=== PATIENT | male | born 1965 | race Caucasian/White ===

== ENCOUNTER 2022-09-29 08:39 | Observation (INO) ==
[2022-09-29] MEDS ORDERED: MoRPHine SULFATE 4 MG/ML 1 ML CARP\\VIAL IV PRN ×2 (08:59→15:45)
[2022-09-29] MEDS ORDERED: SODIUM CHLORIDE 0.9% 1000ML 1,000 ML IV STA (08:59)
[2022-09-29] MEDS ORDERED: ONDANSETRON INJ 2 MG/ML 2 ML VIAL IV STA (08:59)
[2022-09-29] MEDS ORDERED: MoRPHine SULFATE 4 MG/ML 1 ML CARP\\VIAL IV STA (08:59)
--- NOTE | 2022-09-29 09:05 | Emergency Department Note ---
Impression & Plan Epigastric abdominal pain, Acute cholecystitis ED Provider Note NAME: DALTON FERNANDEZ AGE: 57 SEX: M : 1965 ARRIVES VIA: Walk-In INFORMANT: [Patient] ED PROVIDER(S): [Aron Vega MD] CHIEF COMPLAINT: Rib pain, abdominal pain HISTORY OF PRESENT ILLNESS: The patient is a 57-year-old male who states that 13 hours ago he began noticing an upset stomach. Things progressed all evening through the night and into this morning to severe pain in the upper abdomen worse on the right. No shortness of breath, no pleuritic pain. No fever, chills, nausea or vomiting. No diarrhea. Patient states the pain is constant. The patient has a history of appendectomy, he has never experienced pain like this before. He had felt fine all day yesterday before the pain began. There was no trauma or injury to the chest wall or abdomen. PMHx/PSHx: See Below SOCIAL HISTORY: See Below. PHYSICAL EXAM: GENERAL: Patient is in mild distress from pain. HEENT: No acute trauma, normocephalic atraumatic, mucous membranes moist, no nasal congestion. NECK: No stridor, no adenopathy, no meningismus, trachea is midline. LUNGS: Clear to auscultation bilaterally, no wheeze, no rhonchi, breath sounds equal. HEART: Without murmurs gallops or rubs, regular rate and rhythm. ABDOMEN: Soft, moderately tender in the upper abdomen and epigastric area bilaterally, especially on the right. No abdominal distention. EXTREMITIES: No cyanosis or edema, full range of motion of all the joints without pain or difficulty, no signs for acute trauma. NEUROLOGIC: Oriented x 3, no acute motor or sensory deficits, no focal weakness. SKIN: No rash, no jaundice, no diaphoresis. DIFFERENTIAL DIAGNOSIS: Diverticulitis, UTI, obstruction, mesenteric ischemia, cardiac ischemia, aortic pathology, renal colic, PUD, pancreatitis, biliary pathology, hernia, volvulus, constipation, as well as other pathologies. EMERGENCY DEPARTMENT COURSE/PROCEDURES: Prior/Outside records reviewed: Previous ED visit. ECG per my interpretation: Indication was abdominal pain. The ECG shows a normal sinus rhythm with a rate of 64. There is no ST elevation, no PVCs. The QTc is 433. Continuous Cardiac Monitoring per my interpretation: An order was placed for continuous cardiac monitoring. The monitor shows a rate of 60 with normal sinus rhythm. MEDICAL DECISION MAKING: There is no leukocytosis, no anemia. There is a normal platelet count. No renal failure or significant electrolyte abnormality. No concerning liver enzyme elevation. No evidence for pancreatitis. ECG shows a normal sinus rhythm, no ischemia. Cardiac enzyme testing x1 is not consistent with acute cardiac injury. Urinalysis does not show infection or hematuria. COVID test returned negative. Chest x-ray does not show mediastinal widening, pneumonia or pneumothorax. Abdominal and pelvis CT shows evidence for acute cholecystitis. No bowel obstruction, no free air. The patient did seem uncomfortable on my exam. He was given IV morphine for pain, IV Zofran for nausea, he was given IV saline, 1 L. He received IV Ativan for some stress and anxiety. The patient was given IV ceftriaxone and IV Flagyl. I spoke to the patient, I talked to case management. I did speak with the general surgical department. The patient is being hospitalized on their service for presumed cholecystectomy. DISPOSITION: The patient is findings and presentation warrant hospital stay with surgical intervention. Past Med/Surg History Medical History (Updated 09/29/22 @ 16:17 by Aron Vega MD) Hypertension Social History Smoking Status: Never smoker Feels Safe at Home: Yes Allergies Allergies Allergy/AdvReac Type Severity Reaction Status Date / Time Penicillins Allergy Unknown Gastrointestinal Verified 09/29/22 11:53 Upset Home Meds Home Medications Medication Instructions Recorded Confirmed Vanita Green Gummies 1 tab PO DAILY 09/29/22 09/29/22 bismuth subsalicylate 262 mg/15 mL 0 mg PO DIRECTED PRN .Gi-upset 09/29/22 09/29/22 oral suspension (Pepto-Bismol) losartan 50 mg-hydrochlorothiazide 1 tab PO DAILY 09/29/22 09/29/22 12.5 mg tablet Results & Data (ED) Vital Signs Vital Signs - 24 hr 09/29/22 08:47 09/29/22 09:04 09/29/22 10:39 Temperature Source Temporal Artery Scan Pulse Rate 70 60 Pulse Rate [Apical] 76 Pulse Rhythm Regular Respiratory Rate 18 22 18 Blood Pressure 156/112 H Blood Pressure [Right Arm] Blood Pressure Mean 126 Blood Pressure Mean [Right Arm] Pulse Oximetry 98 98 96 Oxygen Delivery Method Room Air Room Air Sepsis Recent Fever Within 48 Hours Yes Sepsis New/Unexplained Change in Mental Status N/A Sepsis Action Taken by Nursing No Action Required 09/29/22 12:00 Temperature Source Pulse Rate Pulse Rate [Apical] 72 Pulse Rhythm Respiratory Rate 20 Blood Pressure Blood Pressure [Right Arm] 123/85 Blood Pressure Mean Blood Pressure Mean [Right Arm] 97 Pulse Oximetry 93 Oxygen Delivery Method Sepsis Recent Fever Within 48 Hours Sepsis New/Unexplained Change in Mental Status Sepsis Action Taken by Alf Medications Current Medication List: was personally reviewed by me Laboratory Data Attestation: I reviewed the patient's lab results. 09/29/22 09:00 09/29/22 09:00 Lab Results 09/29/22 09/29/22 Range/Units 09:00 09:00 WBC 5.42 (4.8-10.8) K/ul RBC 6.15 H (4.63-6.08) M/uL Hgb 18.9 H (14.0-18.0) g/dl Hct 52.7 H (40.1-51.0) % MCV 85.7 (80.0-100.0) fL MCH 30.7 (25.0-34.0) pg MCHC 35.9 (32.0-36.0) g/dL RDW Std Deviation 39.0 (36.4-46.3) fL RDW Coeff of Gris 12.6 (11.5-14.5) % Plt Count 217 (130-400) K/uL MPV 9.3 L (9.4-12.4) fL Immature Gran % (Auto) 0.2 % Neut % (Auto) 53.9 % Lymph % (Auto) 31.7 % [place] % (Auto) 10.3 % Eos % (Auto) 3.5 % Baso % (Auto) 0.4 % Neut # (Auto) 2.92 (1.4-6.5) K/uL Lymph # (Auto) 1.72 (1.2-3.4) K/uL Windsor # (Auto) 0.56 (0.24-0.82) K/uL Eos # (Auto) 0.19 (0-0.50) K/uL Baso # (Auto) 0.02 (0-0.2) K/uL Immature Gran # (Auto) 0.01 (0.00-0.02) K/uL Sodium 141 (136-145) mmol/L Potassium 4.1 (3.5-5.1) mmol/L Chloride 106 (98-107) mmol/L Carbon Dioxide 30 (21-32) mmol/L Anion Gap 5 (3-11) BUN 22 (6-23) mg/dl Creatinine 1.21 (0.6-1.4) mg/dl Est Cr Clr Drug Dosing 90.6 ml/min Est GFR ( Amer) 77.1 ml/min Est GFR (Non-Af Amer) 66.5 ml/min BUN/Creatinine Ratio 18.2 (10-20) Glucose 110 H (70-99(Fasting)) mg/dl Calcium 9.1 (8.5-10.1) mg/dl Total Bilirubin 0.7 (0.2-1.0) mg/dl AST 22 (13-39) U/L ALT 24 (7-52) U/L Alkaline Phosphatase 48 (34-104) U/L Troponin I High Sens 3.5 (0-20) pg/ml Total Protein 6.9 (6.0-8.3) gm/dl Albumin 4.2 (3.4-5.0) gm/dl Globulin 2.7 (2.5-4.0) gm/dl Albumin/Globulin Ratio 1.6 (0.9-2) Lipase 71 (11-82) U/L Administered Medications Discontinued Medications Sodium Chloride (Nss 1000ml) 1,000 mls @ 999 mls/hr IV .Q1H1M STA Stop: 09/29/22 09:59 Last Infusion: 09/29/22 10:31 Dose: 0 mls/hr Documented By: Admin: 09/29/22 09:24 Dose: 999 mls/hr Documented By: BELLO Ceftriaxone Sodium (Rocephin) 2,000 mg in 70 mls @ 140 mls/hr IV NOW STA Stop: 09/29/22 12:03 Last Infusion: 09/29/22 13:35 Dose: 0 mls/hr Documented By: Admin: 09/29/22 11:52 Dose: 140 mls/hr Documented By: DINA Metronidazole (Flagyl) 500 mg in 100 mls @ 100 mls/hr IV NOW ONE Stop: 09/29/22 12:59 Last Infusion: 09/29/22 15:03 Dose: 0 mls/hr Documented By: Admin: 09/29/22 13:35 Dose: 100 mls/hr Documented By: ADITI Ioversol (Optiray 350 100ml) 94 ml IV ONCE ONE Stop: 09/29/22 10:46 Last Admin: 09/29/22 10:45 Dose: 94 ml Documented By: RAMON Lorazepam (Lorazepam 2 Mg/1 Ml Vial) 0.5 mg IV NOW STA Stop: 09/29/22 10:07 Last Admin: 09/29/22 10:26 Dose: 0.5 mg Documented By: BELLO Morphine Sulfate (Morphine Sulfate 4 Mg/Ml 1 Ml Carp\Vial) 6 mg IV NOW STA Stop: 09/29/22 09:00 Last Admin: 09/29/22 09:27 Dose: 6 mg Documented By: BELLO Ondansetron HCl (Ondansetron Inj 2 Mg/Ml 2 Ml Vial) 4 mg IV NOW STA Stop: 09/29/22 09:00 Last Admin: 09/29/22 09:26 Dose: 4 mg Documented By: BELLO Imaging Data Radiologist's Impression: Abdomen/Pelvis CT 09/29/22 08:[address] WITH IV CONTRAST CT DOSE: 689.67 mGy.cm HISTORY: Acute right upper quadrant abdominal pain upper abd pain TECHNIQUE: Multiaxial CT images of the abdomen and pelvis were performed following the IV administration of 94 cc of Optiray, A dose lowering technique was utilized adhering to the principles of ALARA. COMPARISON STUDY: None. FINDINGS: Mild subsegmental bibasilar atelectasis. Likely benign 3 mm solid nodule of the inferior segment lingula. There is no pneumatosis or pneumoperitoneum. Unremarkable spleen, pancreas, adrenal glands and liver. Patency of the hepatic and portal veins. There are a few subcentimeter hypodensities within the superior liver are too small to characterize and likely benign. The gallbladder is distended with circumferential wall thickening and pericholecystic fluid. No cholelithiasis or biliary ductal dilation identified. Punctate nonobstructing calculus of the superior pole right kidney. Mild nonspecific bilateral perinephric stranding. There are a few left-sided renal sinus cysts present. No ureteral calculi or hydronephrosis. Partial distention of the urinary bladder. Small fat filled inguinal hernias. No abdominal aortic aneurysm or lymphadenopathy. No bowel obstruction or bowel wall thickening. Appendectomy. Tiny ventral abdominal wall herniorrhaphy. No acute fracture. IMPRESSION: 1. Distended gallbladder with wall thickening and pericholecystic fluid suggestive of acute cholecystitis. 2. No bowel obstruction or bowel wall thickening. 3. Punctate nonobstructing calculus of the right kidney. ACT 112: Negative or not required by law. The above report was generated using voice recognition software. It may contain grammatical, syntax or spelling errors. Electronically signed by: Serafin Rowan M.D. 09/29/2022 11:16 AM Chest X-Ray 09/29/22 09:00 XR chest 1V portable CLINICAL HISTORY: abd pain TECHNIQUE: Single frontal radiograph of the chest was obtained. Comparison: Comparison is made to chest radiograph 01/17/2019 FINDINGS: No lines and tubes are seen. The cardiomediastinal silhouette is normal. The lungs are clear. No evidence of pleural effusion or pneumothorax. IMPRESSION: No acute chest disease. ACT 112: Negative or not required by law. Electronically signed by: Dillan Daniel M.D. 09/29/2022 9:24 AM Gallbladder Ultrasound 09/29/22 11:42 US gallbladder CLINICAL HISTORY: Cholecystitis by CT. COMPARISON STUDY: CT of the abdomen and pelvis performed earlier today. TECHNIQUE: Sonography of the right upper quadrant was performed. FINDINGS: No hepatic lesions are identified. There is no biliary ductal dilatation. The gallbladder is mildly distended. Gallbladder wall thickening is noted. In addition, the gallbladder wall is edematous with mild pericholecystic fluid. No gallstones are identified. Sonographic Freeman sign could not be assessed for given pain medication administration. Pancreas is obscured. There is no right hydronephrosis. IMPRESSION: 1. Mildly distended gallbladder with edematous, thickened gallbladder wall. No gallstones identified however the CT findings remain suspicious for acute cho lecystitis. If indicated, a hepatobiliary scan could be obtained. 2. No biliary ductal dilatation. ACT 112: Negative or not required by law. Electronically signed by: Ashvin Vasquez M.D. 09/29/2022 3:08 PM Discharge Plan Visit Data Chief Complaint: Rib Injury/Pain Stated Complaint: RIBS HURTING,BLOATED ED Provider: Aron Vega Discharge Problem: Epigastric abdominal pain, Acute cholecystitis Patient Disposition: Admitted As Inpatient Condition: Fair Discharge Instructions Interventions: ED Discharge Assessment Last Done: 09/29/22 15:46
--- NOTE | 2022-09-29 09:26 | XRay Report ---
XR chest 1V portable CLINICAL HISTORY: abd pain TECHNIQUE: Single frontal radiograph of the chest was obtained. Comparison: Comparison is made to chest radiograph 01/17/2019 FINDINGS: No lines and tubes are seen. The cardiomediastinal silhouette is normal. The lungs are clear. No evid ence of pleural effusion or pneumothorax. IMPRESSION: No acute chest disease. ACT 112: Negative or not required by law. Electronically signed by: Dillan Daniel M.D. 09/29/2022 9:24 AM
[2022-09-29 09:34] LABS: Basophils # (auto) 0.02 K/uL (0-0.2); Basophils % (auto) 0.4 %; Eosinophils # (auto) 0.19 K/uL (0-0.50); Eosinophils % (auto) 3.5 %; Hematocrit (blood only) 52.7 % (40.1-51.0); Hemoglobin 18.9 g/dl (14.0-18.0); Immature Granulocytes # (auto) 0.01 K/uL (0.00-0.02); Immature Granulocytes % (auto) 0.2 %; Lymphocytes # (auto) 1.72 K/uL (1.2-3.4); Lymphocytes % (auto) 31.7 %; Mean Corpuscular Hemoglobin 30.7 pg (25.0-34.0); Mean Corpuscular Hgb Conc 35.9 g/dL (32.0-36.0); Mean Corpuscular Volume 85.7 fL (80.0-100.0); Mean Platelet Volume 9.3 fL (9.4-12.4); Monocytes # (auto) 0.56 K/uL (0.24-0.82); Monocytes % (auto) 10.3 %; Neutrophils # (auto) 2.92 K/uL (1.4-6.5); Neutrophils % (auto) 53.9 %; Platelet Count 217 K/uL (130-400); RDW Coefficient of Variation 12.6 % (11.5-14.5); Red Blood Count 6.15 M/uL (4.63-6.08); White Blood Count 5.42 K/ul (4.8-10.8)
[2022-09-29 10:01] LABS: Albumin Globulin Ratio 1.6 (0.9-2); Albumin Level 4.2 gm/dl (3.4-5.0); BUN Creatinine Ratio 18.2 (10-20); Bilirubin,Total 0.7 mg/dl (0.2-1.0); Calcium 9.1 mg/dl (8.5-10.1); Creatinine Clr Calc Pharmacy 90.6 ml/min; Est GFR (African American) 77.1 ml/min; Est GFR (Non-African American) 66.5 ml/min; Globulin 2.7 gm/dl (2.5-4.0); Potassium 4.1 mmol/L (3.5-5.1); Total Protein 6.9 gm/dl (6.0-8.3)
[2022-09-29 10:06] LABS: Troponin I High Sensitivity 3.5 pg/ml (0-20)
[2022-09-29] MEDS ORDERED: LORazepam 2 MG/1 ML VIAL IV STA (10:06)
[2022-09-29] MEDS ORDERED: OPTIRAY 350 100ml IV ONE (10:45)
--- NOTE | 2022-09-29 11:17 | CT Scan Report ---
ABDOMEN AND PELVIS CT WITH IV CONTRAST CT DOSE: 689.67 mGy.cm HISTORY: Acute right upper quadrant abdominal pain upper abd pain TECHNIQUE: Multiaxial CT images of the abdomen and pelvis were performed following the IV administrat ion of 94 cc of Optiray, A dose lowering technique was utilized adhering to the principles of ALARA. COMPARISON STUDY: None. FINDINGS: Mild subsegmental bibasilar atelectasis. Likely benign 3 mm solid nodule of the inferior se gment lingula. There is no pneumatosis or pneumoperitoneum. Unremarkable spleen, pancreas, adrenal gl ands and liver. Patency of the hepatic and portal veins. There are a few subcentimeter hypodensities within the superior liver are too small to characterize and likely benign. The gallbladder is distend ed with circumferential wall thickening and pericholecystic fluid. No cholelithiasis or biliary ducta l dilation identified. Punctate nonobstructing calculus of the superior pole right kidney. Mild nonspecific bilateral perine phric stranding. There are a few left-sided renal sinus cysts present. No ureteral calculi or hydrone phrosis. Partial distention of the urinary bladder. Small fat filled inguinal hernias. No abdominal a ortic aneurysm or lymphadenopathy. No bowel obstruction or bowel wall thickening. Appendectomy. Tiny ventral abdominal wall herniorrhaphy. No acute fracture. IMPRESSION: 1. Distended gallbladder with wall thickening and pericholecystic fluid suggestive of acute cholecyst itis. 2. No bowel obstruction or bowel wall thickening. 3. Punctate nonobstructing calculus of the right kidney. ACT 112: Negative or not required by law. The above report was generated using voice recognition software. It may contain grammatical, syntax o r spelling errors. Electronically signed by: Serafin Rowan M.D. 09/29/2022 11:16 AM
[2022-09-29] MEDS ORDERED: cefTRIAXone SODIUM 2,000 MG/70 ML BAG IV STA (11:34)
[2022-09-29] MEDS ORDERED: metroNIDAZOLE 500 MG/100 ML BAG IV ONE (12:00)
[2022-09-29 12:03] LABS: Appearance Urine Clear (Clear); Bilirubin Urine Negative (Negative); Blood Urine Negative (Negative); Color Urine Yellow; Glucose Urine UA Negative (Negative); Ketones Urine Negative (Negative); Leukocyte Esterase Urine Negative (Negative); Nitrite Urine Negative (Negative); Protein Urine Negative (Negative); Specific Gravity Urine 1.034 (1.000-1.030); Urobilinogen Urine Negative (Negative)
--- NOTE | 2022-09-29 14:49 | History & Physical Report ---
Date of Service September 29, 2022 Assessment & Plan (1) Abdominal pain: Plan: This is a 57yM with a PMH of HTN who presented to the [facility] ED on 09/29/22 with complaints of right sided abdominal pain that started yesterday around 6pm after eating pizza. The pain continued to worsen in severity and he had decided to come into the ER for further evaluation. A CT a/p was obtained that showed distended gallbladder with wall thickening and pericholecystic fluid suggestive of acute cholecystitis. RUQ US showed mildly distended gallbladder with edematous, thickened gallbladder wall. No gallstones. No biliary ductal dilatation. WBC 5.4. LFTs unremarkable. On examination patient's abdomen is soft with mild discomfort elicited in the RUQ He has received pain medication. Will admit patient and keep NPO with IVF and start on IV abx. Will proceed with laparoscopic cholecystectomy tomorrow with Dr. West. History of Present Illness Primary Care Provider: Colin Liu This is a 57yM with a PMH of HTN who presented to the [facility] ED on 09/29/22 with complaints of abdominal pain. Patient states his pain started yesterday evening around 6pm. Mostly located in the right upper abdomen. He thought it was related to indigestion and diarrhea, however pain did not improved. He tried heat packs without relief. When he woke up this AM he says it felt like he did 1000 sit ups . He attempted to go to work, however only lasted there an hour as he was doubled over due to pain. He called his and he ended up coming into the ER for evaluation. A CT a/p was obtained that showed distended gallbladder with wall thickening and pericholecystic fluid suggestive of acute cholecystitis. RUQ US showed mildly distended gallbladder with edematous, thickened gallbladder wall. No gallstones. No biliary ductal dilatation. Last ate pizza yesterday evening prior to pain starting. Patient denies any CP/SOB, nausea/vomiting, or fevers. + chills. He has never had pain like this before and no issues with greasy/fatty foods in the past. Past surgical history includes an appendectomy and umbilical hernia repair at [place] years ago. Allergies Allergy/AdvReac Type Severity Reaction Status Date / Time Penicillins Allergy Unknown Gastrointestinal Verified 09/29/22 11:53 Upset Home Medications Medication Instructions Recorded Confirmed Type Vanita Green Gummies 1 tab PO DAILY 09/29/22 09/29/22 History bismuth subsalicylate 262 mg/15 mL 0 mg PO DIRECTED PRN .Gi-upset 09/29/22 09/29/22 History oral suspension (Pepto-Bismol) losartan 50 mg-hydrochlorothiazide 1 tab PO DAILY 09/29/22 09/29/22 History 12.5 mg tablet Past Med/Surg History Medical History (Updated 09/29/22 @ 15:30 by Tiffanie Valente PA-C) Hypertension Social History Smoking Status: Never smoker Feels Safe at Home: Yes Review of Systems Constitutional: + chills; no fever Respiratory: no dyspnea Cardiovascular: no chest pain Gastrointestinal: + abdominal pain; no bloating, no nausea and no vomiting Physical Exam Physical Exam: awake/alert, no distress Respiratory: normal respiratory effort Gastrointestinal (Abdomen): Inspection/Auscultation: + abdominal surgical scar; abdomen not distended Percussion/Palpation: + abdomen tender (mild discomfort in RUQ region) and abdomen soft Results & Data Results & Data ([facility]) Vital Signs (Past 12 Hours) Vital Signs Pulse Pulse Resp BP BP Pulse Ox O2 Del Method 09/29/22 14:00 61 18 116/88 94 Room Air 09/29/22 12:00 72 20 123/85 93 09/29/22 10:39 76 18 96 09/29/22 09:04 60 22 98 Room Air 09/29/22 08:47 70 18 156/112 H 98 Room Air Diagnostic Findings ABDOMEN AND PELVIS CT WITH IV CONTRAST CT DOSE: 689.67 mGy.cm HISTORY: Acute right upper quadrant abdominal pain upper abd pain TECHNIQUE: Multiaxial CT images of the abdomen and pelvis were performed following the IV administration of 94 cc of Optiray, A dose lowering technique was utilized adhering to the principles of ALARA. COMPARISON STUDY: None. FINDINGS: Mild subsegmental bibasilar atelectasis. Likely benign 3 mm solid nodule of the inferior segment lingula. There is no pneumatosis or pneumoperitoneum. Unremarkable spleen, pancreas, adrenal glands and liver. Patency of the hepatic and portal veins. There are a few subcentimeter hypodensi ties within the superior liver are too small to characterize and likely benign. The gallbladder is distended with circumferential wall thickening and pericholecystic fluid. No cholelithiasis or biliary ductal dilation identified. Punctate nonobstructing calculus of the superior pole right kidney. Mild nonspecific bilateral perinephric stranding. There are a few left-sided renal sinus cysts present. No ureteral calculi or hydronephrosis. Partial distention of the urinary bladder. Small fat filled inguinal hernias. No abdominal aortic aneurysm or lymphadenopathy. No bowel obstruction or bowel wall thickening. Appendectomy. Tiny ventral abdominal wall herniorrhaphy. No acute fracture. IMPRESSION: 1. Distended gallbladder with wall thickening and pericholecystic fluid suggestive of acute cholecystitis. 2. No bowel obstruction or bowel wall thickening. 3. Punctate nonobstructing calculus of the right kidney. ACT 112: Negative or not required by law. The above report was generated using voice recognition software. It may contain grammatical, syntax or spelling errors. Electronically signed by: Serafin Rowan M.D. 09/29/2022 11:16 AM US gallbladder CLINICAL HISTORY: Cholecystitis by CT. COMPARISON STUDY: CT of the abdomen and pelvis performed earlier today. TECHNIQUE: Sonography of the right upper quadrant was performed. FINDINGS: No hepatic lesions are identified. There is no biliary ductal dilatation. The gallbladder is mildly distended. Gallbladder wall thickening is noted. In addition, the gallbladder wall is edematous with mild pericholecystic fluid. No gallstones are identified. Sonographic Freeman sign could not be assessed for given pain medication administration. Pancreas is obscured. There is no right hydronephrosis. IMPRESSION: 1. Mildly distended gallbladder with edematous, thickened gallbladder wall. No gallstones identified however the CT findings remain suspicious for acute cholecystitis. If indicated, a hepatobiliary scan could be obtained. 2. No biliary ductal dilatation. ACT 112: Negative or not required by law. Electronically signed by: Ashvin Vasquez M.D. 09/29/2022 3:08 PM Code Status & VTE Plan VTE Prophylaxis Plan VTE Prophylaxis will be ordered: Yes Supervising Physician Co-Signing Physician Notes I personally saw and evaluated the patient with Tiffanie Valente PA-C and agree with the assessment and plan. 57-year-old male with acute cholecystitis CT images and results as well as ultrasound images and results personally viewed by myself He has a distended thickened gallbladder with pericholecystic fluid consistent with cholecystitis as well as pain in the right upper quadrant to deep palpation Will admit the patient to the surgical service and keep n.p.o. give IV fluids IV antibiotics Pain control as needed We will plan on laparoscopic cholecystectomy, possible open, possible intraoperative angiogram tomorrow PG Care Time/CCT Total # of Minutes Spent Total Time Spent with Patient: Total time spent is greater than 50% in coordination of care (as documented) at patient's floor/unit and/or counseling patient: Coding Level of Care Code 31886 INT INP/OBS CARE 2/55MIN Diagnoses Abdominal pain R10.9
--- NOTE | 2022-09-29 15:09 | Ultrasound Report ---
US gallbladder CLINICAL HISTORY: Cholecystitis by CT. COMPARISON STUDY: CT of the abdomen and pelvis performed earlier today. TECHNIQUE: Sonography of the right upper quadrant was performed. FINDINGS: No hepatic lesions are identified. There is no biliary ductal dilatation. The gallbladder i s mildly distended. Gallbladder wall thickening is noted. In addition, the gallbladder wall is edemat ous with mild pericholecystic fluid. No gallstones are identified. Sonographic Freeman sign could not be assessed for given pain medication administration. Pancreas is obscured. There is no right hydrone phrosis. IMPRESSION: 1. Mildly distended gallbladder with edematous, thickened gallbladder wall. No gallstones identified however the CT findings remain suspicious for acute cholecystitis. If indicated, a hepatobiliary scan could be obtained. 2. No biliary ductal dilatation. ACT 112: Negative or not required by law. Electronically signed by: Ashvin Vasquez M.D. 09/29/2022 3:08 PM
[2022-09-29] MEDS ORDERED: MoRPHine SULFATE 2 MG/ML CARP IV PRN (15:45)
[2022-09-29] MEDS ORDERED: ONDANSETRON INJ 2 MG/ML 2 ML VIAL IV PRN (15:45)
[2022-09-29] MEDS: LACTATED RINGER'S 1,000 ML IV SCH (16:42)
[2022-09-29] MEDS: AMPICILLIN/SULBACTAM SOD 3,000 MG in 0.9 % SODIUM CHLORIDE 100 ML IV SCH ×2 (17:41→21:30)
--- NOTE | 2022-09-29 18:22 | Electrocardiogram Report ---
Test Reason : Blood Pressure : / mmHG Vent. Rate : 064 BPM Atrial Rate : 064 BPM P-R Int : 176 ms QRS Dur : 100 ms QT Int : 420 ms P-R-T Axes : 049 -26 027 degrees QTc Int : 433 ms Normal sinus rhythm with sinus arrhythmia Normal ECG When compared with ECG of 17-JAN-2019 11:58, QT has lengthened Confirmed by Bruce Uribe ([id number]) on 09/29/2022 6:22:21 PM Referred By: REFERRED SELF Confirmed By:Frank Uribe
[2022-09-30] MEDS: LACTATED RINGER'S 1,000 ML IV SCH ×3 (01:30→12:14)
[2022-09-30] MEDS ORDERED: Nursing to Pharmacy Communication SCH (01:45)
[2022-09-30] MEDS: AMPICILLIN/SULBACTAM SOD 3,000 MG in 0.9 % SODIUM CHLORIDE 100 ML IV SCH ×2 (05:05→10:30)
--- NOTE | 2022-09-30 06:46 | Anesthesiology Consultation ---
Date of Service September 30, 2022 Assessment & Plan (1) Encounter for pre-operative examination: Chart Review Chart Review: Acceptable Risk for Surgery and Patient NOT seen in Pre Admission Testing Consults Requested none History Surgery Operation Date: 09/30/22 09:20 Proposed Procedures p Laparoscopic Cholecystectomy, Possible Open, Possible Cholangiogram - Riki West, Height/Weight Height: 6 ft 2 in Weight: 109.9 kg Allergies Allergy/AdvReac Type Severity Reaction Status Date / Time Penicillins Allergy Unknown Gastrointestinal Verified 09/29/22 11:53 Upset Medications Home Medications Medication Instructions Recorded Confirmed Last Taken Vanita Green Gummies 1 tab PO DAILY 09/29/22 09/29/22 Unknown bismuth subsalicylate 262 mg/15 mL 0 mg PO DIRECTED PRN .Gi-upset 09/29/22 09/29/22 09/28/22 19:00 oral suspension (Pepto-Bismol) losartan 50 mg-hydrochlorothiazide 1 tab PO DAILY 09/29/22 09/29/22 09/25/22 12.5 mg tablet Active Medications Generic Name Dose Route Start Last Admin Trade Name Freq PRN Reason Stop Dose Admin Lactated Ringer's 1,000 mls @ 125 mls/hr 09/29/22 15:45 09/30/22 05:38 Lr IV 10/29/22 15:44 125 mls/hr .Q8H ALEKSANDRA Infusion Ampicillin Sodium/Sulbactam 108 mls @ 200 mls/hr 09/29/22 16:30 09/30/22 05:38 Sodium 3,000 mg/ Sodium IV 10/09/22 16:29 Infused Chloride Q6H ALEKSANDRA Infusion Protocol NPO Date Last Intake of Fluids: 09/29/22 Time Last Intake of Fluids: 23:59 Date Last Intake of Solids: 09/28/22 Time Last Intake of Solids: 18:00 Past Medical History Medical History (Updated 09/30/22 @ 06:46 by James Siddiqi MD) Acute cholecystitis Hypertension Social History Smoking Status: Never smoker Hx Alcohol Use: No Hx Substance Use: No Physical Exam Vital Signs Last Vital Signs Temp 36.6 C 09/29/22 22:41 Pulse 72 09/29/22 22:41 Resp 18 09/29/22 22:41 BP 129/82 01/23/23 22:41 Pulse Ox 96 09/29/22 22:41 O2 Del Method 09/29/22 22:41 Testing Laboratory Results 09/29/22 09:00 09/29/22 09:00 Urine Color Yellow 09/29/22 Unknown Urine Appearance Clear (Clear) 09/29/22 Unknown Urine pH 6.0 (4.5-7.5) 09/29/22 Unknown Ur Specific Terry 1.034 (1.000-1.030) H 09/29/22 Unknown Urine Protein Negative (Negative) 09/29/22 Unknown Urine Glucose (UA) Negative (Negative) 09/29/22 Unknown Urine Ketones Negative (Negative) 09/29/22 Unknown Urine Nitrite Negative (Negative) 09/29/22 Unknown Ur Leukocyte Esterase Negative (Negative) 09/29/22 Unknown Electrocardiogram Date: 09/29/22 DICTATED BY:Bruce Uribe MD Test Reason : Blood Pressure : / mmHG Vent. Rate : 064 BPM Atrial Rate : 064 BPM P-R Int : 176 ms QRS Dur : 100 ms QT Int : 420 ms P-R-T Axes : 049 -26 027 degrees QTc Int : 433 ms Normal sinus rhythm with sinus arrhythmia Normal ECG When compared with ECG of 17-JAN-2019 11:58, QT has lengthened Confirmed by Bruce Uribe ([id number]) on 09/29/2022 6:22:21 PM
[2022-09-30 08:10] LABS: Basophils # (auto) 0.02 K/uL (0-0.2); Basophils % (auto) 0.5 %; Eosinophils # (auto) 0.15 K/uL (0-0.50); Eosinophils % (auto) 3.8 %; Hemoglobin 17.8 g/dl (14.0-18.0); Immature Granulocytes # (auto) 0.01 K/uL (0.00-0.02); Immature Granulocytes % (auto) 0.3 %; Lymphocytes # (auto) 1.47 K/uL (1.2-3.4); Lymphocytes % (auto) 36.9 %; Mean Corpuscular Hemoglobin 30.5 pg (25.0-34.0); Mean Corpuscular Hgb Conc 36.3 g/dL (32.0-36.0); Monocytes # (auto) 0.43 K/uL (0.24-0.82); Monocytes % (auto) 10.8 %; Neutrophils % (auto) 47.7 %; Platelet Count 173 K/uL (130-400); RDW Coefficient of Variation 12.5 % (11.5-14.5); RDW Standard Deviation 38.3 fL (36.4-46.3); Red Blood Count 5.83 M/uL (4.63-6.08); White Blood Count 3.98 K/ul (4.8-10.8)
[2022-09-30] MEDS ORDERED: PROPOFOL IV EMULSION 10 MG/ML 20 ML VIAL IV ONE (08:20)
[2022-09-30] MEDS ORDERED: ONDANSETRON INJ 2 MG/ML 2 ML VIAL ONE (08:20)
[2022-09-30] MEDS ORDERED: LIDOCAINE 2% MPF LOCAL 5 ML VIAL INFIL ONE (08:20)
[2022-09-30] MEDS ORDERED: DEXAMETHASONE SOD INJ 4 MG/ML VIAL ONE (08:20)
[2022-09-30] MEDS ORDERED: NEOSTIGMINE METHYLSULFATE 1 MG/ML 10ML VIAL ONE (08:21)
[2022-09-30] MEDS ORDERED: fentaNYL citrate 100 MCG/2 ML VIAL ONE ×2 (08:21→12:27)
[2022-09-30] MEDS ORDERED: ROCURONIUM BROMIDE 10 MG/ML 5 ML VIAL IV ONE (08:21)
[2022-09-30] MEDS ORDERED: MIDAZOLAM HCL 1 MG/ML 2ML VIAL ONE (08:21)
[2022-09-30] MEDS ORDERED: GLYCOPYRROLATE 0.2 MG/ML VIAL ONE (08:21)
[2022-09-30 08:57] LABS: Albumin Globulin Ratio 1.4 (0.9-2); Albumin Level 3.5 gm/dl (3.4-5.0); BUN Creatinine Ratio 14.5 (10-20); Bilirubin,Total 1.2 mg/dl (0.2-1.0); Calcium 8.8 mg/dl (8.5-10.1); Est GFR (African American) 80.3 ml/min; Est GFR (Non-African American) 69.3 ml/min; Globulin 2.5 gm/dl (2.5-4.0); Potassium 4.2 mmol/L (3.5-5.1)
--- NOTE | 2022-09-30 08:58 | Surgery Progress Note ---
Date of Service September 30, 2022 Assessment & Plan (1) Acute cholecystitis: Plan: Patient symptoms are improved We will proceed with laparoscopic cholecystectomy, possible open, possible intraoperative cholangiogram today Consent was obtained, risk discussed including bleeding, infection, bile leak, ductal injury Admission and Anticipated Discharge Date Admission Date: September 29, 2022 Subjective Patient seen and examined. Denies any abdominal pain at this time. Denies nausea or vomiting. Afebrile. Review of Systems Constitutional: no fever and no chills Gastrointestinal: no abdominal pain, no nausea and no vomiting Physical Exam Constitutional: WD/WN, vitals as above Gastrointestinal (Abdomen): Inspection/Auscultation: abdomen normal to inspection; abdomen not distended Percussion/Palpation: abdomen soft; abdomen nontender, no guarding and no hernia Results & Data ([facility]) Vital Signs (Past 12 Hours) Vital Signs Temp Pulse Resp BP Pulse Ox O2 Del Method 09/30/22 08:06 36.5 C 68 18 139/96 98 Room Air 09/30/22 07:11 36.8 C 72 18 132/81 95 Room Air 09/29/22 22:41 36.6 C 72 18 129/82 96 Room Air PG Care Time/CCT Total # of Minutes Spent Total Time Spent with Patient: Total time spent is greater than 50% in coordination of care (as documented) at patient's floor/unit and/or counseling patient: Coding Level of Care Code 76777 SUB INP/OBS CARE 25MIN Diagnoses Acute cholecystitis K81.0
[2022-09-30] MEDS ORDERED: BUPIVACAINE/EPINEPHRINE 0.25% 1:200,000 30 ML VIAL ONE (09:05)
[2022-09-30] MEDS ORDERED: ONDANSETRON INJ 2 MG/ML 2 ML VIAL IV PRN (09:06)
[2022-09-30] MEDS ORDERED: ATROPINE SULFATE 0.1 MG/ML 10ML SYR IV PRN (09:06)
[2022-09-30] MEDS ORDERED: ePHEDrine sulfate 50 MG/ML AMP IV PRN (09:06)
[2022-09-30] MEDS ORDERED: FLOSEAL HEMOSTATIC MATRIX 10ML TOP ONE (10:12)
--- NOTE | 2022-09-30 10:42 | Post Operative Brief Note ---
PG Immediate Post Op with CF Date of Surgery September 30, 2022 Pre & Post Diagnosis Operation Date: 09/30/22 09:20 Pre-Op Diagnosis: Acute Cholecystitis Post-Op Diagnosis: Acute Cholecystitis I identified the patient and participated in the time-out.: Yes Procedure Operation Date: 09/30/22 09:20 Actual Procedures p Laparoscopic Cholecystectomy(Not Applicable) - Riki West DO Surgeon Riki West DO Production Director Tiffanie Valente PA-C Estimated Blood Loss 50 Findings Consistent with Post-Op Diagnosis Specimens Specimen Description: A: Gallbladder Anesthesia Type General Complications none Disposition Disposition: Recovery Room
--- NOTE | 2022-09-30 10:46 | Operative Report ---
PG Post Operative Report Pre & Post Diagnosis Operation Date: 09/30/22 09:20 Pre-Op Diagnosis: Acute Cholecystitis Post-Op Diagnosis: Acute Cholecystitis I identified the patient and participated in the time-out.: Yes Procedure Operation Date: 09/30/22 09:20 Actual Procedures p Laparoscopic Cholecystectomy(Not Applicable) - Riki West DO Surgeon Riki West DO Precision Inspector Tiffanie Valente PA-C Estimated Blood Loss 50 Findings Consistent with Post-Op Diagnosis Fluids see anesthesia record Specimens Gallbladder to pathology Drains None Anesthesia Type General Complications none Disposition Disposition: Recovery Room Indications 57 yo male with acute cholecystitis Description of Procedure The patient was brought to the operating room and placed in the supine position with both arms extended. At this time he underwent general endotracheal anesthesia without any problems. He was given appropriate pre-operative antibiotics. His abdomen prepped and draped in the usual sterile fashion. A timeout was called, the procedure was verified as Laparoscopic cholecystectomy, possible open, possible intra-operative cholangiogram. Surgical, nursing and anesthesia teams agreed and the procedure was begun. After injection of 0.25% Marcaine with epinephrine, a supraumbilical transverse incision was made and carried down to the fascia using S-retractors. The abdominal wall was then elevated with towel clamps and abdomen entered using the Veress needle confirming position using the saline drop test. Pneumoperitoneum was established. 5mm trocar was placed. Laparoscope was introduced. No injury from entry into the abdomen was visualized after inspection of the abdomen. Three further ports were placed under direct visualization. One 11mm in the subxiphoid region and two 5mm in the RUQ. At this time the abdomen was inspected and the gallbladder identified. The gallbladder fundus was grasped and retracted cephalad. The gallbladder infundibulum was then grasped and retracted laterally. Omental adhesions were taken off the gallbladder as well as the gallbladder infundibulum. The cystic duct and cystic artery were then identified and skeletonized. The critical view of safety was obtained. They were both then clipped twice proximally and once distally and then divided using scissors. The gallbladder was then taken off of the liver bed using electrocautery and placed in an endocatch bag and removed from the subxiphoid port. Floseal was placed in the liver bed in the vanessa hepatis. The liver bed was then inspected and no bile leak or bleeding was evident. The trocars were then removed under direct visualization and no bleeding was present. The subxiphoid port was then closed using 0-Vicryl using the suture passer. Abdomen was desufflated. The skin was then closed using 4-0 Monocryl in a subcuticular fashion. Surgical glue was applied. Needle and sponge counts were correct x 2. At this time the patient was awoken from anesthesia and extubated having remained stable throughout the entire case. The patient was then transported to PACU in stable condition. The physician expanded duty dental assistant was present scrubbed for entire case. She was essential in positioning, prepping and draping the patient, retraction exposure, driving the laparoscope, closure of the incisions and placement the dressings. I attest to the content of the Intraoperative Record and any orders documented therein. Any exceptions are noted below.
[2022-09-30] MEDS: fentaNYL citrate 100 MCG/2 ML VIAL IV PRN ×3 (11:07→11:17)
--- NOTE | 2022-09-30 11:41 | Anesthesiology Progress Note ---
Date of Service September 30, 2022 Anesthesia Post Procedure Vital Signs Vital Signs: Temp Pulse Pulse Resp BP Pulse Ox O2 Del Method 09/30/22 11:35 97.9 F 75 16 128/93 93 Oxymask 09/30/22 11:05 59 L 16 131/93 98 Oxymask 09/30/22 11:25 97.9 F 68 13 126/92 93 Oxymask 09/30/22 11:15 62 12 131/78 99 Oxymask 09/30/22 10:55 62 14 128/90 99 Oxymask 09/30/22 10:45 97.3 F L 57 L 14 139/86 96 Oxymask 09/30/22 08:06 97.7 F 68 18 139/96 98 Room Air 09/30/22 07:11 98.2 F 72 18 132/81 95 Room Air 09/29/22 22:41 97.9 F 72 18 129/82 96 Room Air 09/29/22 16:36 97.5 F L 64 16 113/76 95 Room Air 09/29/22 14:00 61 18 116/88 94 Room Air 09/29/22 12:00 72 20 123/85 93 O2 Flow Rate 09/30/22 11:35 2 09/30/22 11:05 2 09/30/22 11:25 2 09/30/22 11:15 2 09/30/22 10:55 3 09/30/22 10:45 5 09/30/22 08:06 09/30/22 07:11 09/29/22 22:41 09/29/22 16:36 09/29/22 14:00 09/29/22 12:00 Pain Intensity Abdomen: Pain Intensity: 5 Transfer of Care Handoff Completed per policy Notes Mental Status: alert / awake / arousable and participated in evaluation Patient Amnestic to Procedure: Yes Nausea / Vomiting: adequately controlled Pain: adequately controlled and improving with treatment Airway Patency, RR, SpO2: stable & adequate BP & HR: stable & adequate Hydration State: stable & adequate Anesthetic Complications: no major complications apparent and Pt Satisfied with anesthetic care
[2022-09-30] MEDS ORDERED: ACETAMINOPHEN 325 MG TAB PO PRN (11:55)
[2022-09-30] MEDS ORDERED: oxyCODONE HCL IR 5 MG TAB (IMMEDIATE RELEASE) PO PRN ×2 (11:55)
[2022-09-30] MEDS ORDERED: KETOROLAC 30 MG/ML VIAL ONE (12:15)
[2022-10-01] MEDS: LACTATED RINGER'S 1,000 ML IV SCH (00:32)
[2022-10-01 08:05] LABS: Basophils # (auto) 0.01 K/uL (0-0.2); Basophils % (auto) 0.1 %; Eosinophils # (auto) 0.02 K/uL (0-0.50); Eosinophils % (auto) 0.3 %; Hematocrit (blood only) 52.1 % (40.1-51.0); Hemoglobin 18.9 g/dl (14.0-18.0); Immature Granulocytes # (auto) 0.02 K/uL (0.00-0.02); Immature Granulocytes % (auto) 0.3 %; Lymphocytes # (auto) 1.51 K/uL (1.2-3.4); Lymphocytes % (auto) 19.4 %; Mean Corpuscular Hemoglobin 30.7 pg (25.0-34.0); Mean Corpuscular Hgb Conc 36.3 g/dL (32.0-36.0); Mean Corpuscular Volume 84.6 fL (80.0-100.0); Mean Platelet Volume 9.2 fL (9.4-12.4); Monocytes % (auto) 7.7 %; Neutrophils # (auto) 5.62 K/uL (1.4-6.5); Neutrophils % (auto) 72.2 %; Platelet Count 204 K/uL (130-400); RDW Coefficient of Variation 12.4 % (11.5-14.5); RDW Standard Deviation 38.1 fL (36.4-46.3); Red Blood Count 6.16 M/uL (4.63-6.08); White Blood Count 7.78 K/ul (4.8-10.8)
[2022-10-01 08:18] LABS: Calcium 9.2 mg/dl (8.5-10.1); Creatinine Clr Calc Pharmacy 99.8 ml/min; Est GFR (African American) 87.5 ml/min; Est GFR (Non-African American) 75.5 ml/min
[2022-10-01 11:18] LABS: BUN Creatinine Ratio 12.8 (10-20)
--- NOTE | 2022-10-01 12:33 | Surgery Progress Note ---
Date of Service October 01, 2022 Assessment & Plan (1) Acute cholecystitis: Plan: POD#1 laparoscopic cholecystectomy WBC 7, Hbg 18 Pt doing well, tolerating diet, pain controlled, has been out of bed surgical dressings are c/d/i pt to discharge to home. instructions reviewed f/u in clinic with dr. salcedo within 2 weeks Admission and Anticipated Discharge Date Admission Date: September 29, 2022 Subjective patient is feeling well. offers no complaints. tolerating advances in diet. pain controlled. Physical Exam Physical Exam: awake/alert, no distress Gastrointestinal (Abdomen): Inspection/Auscultation: + abdominal surgical incision (bandages c/d/i) Percussion/Palpation: abdomen soft; abdomen nontender Results & Data ([facility]) Vital Signs (Past 12 Hours) Vital Signs Temp Pulse Resp BP Pulse Ox O2 Del Method 10/01/22 08:36 36.5 C 63 16 139/79 96 Room Air 10/01/22 02:56 36.7 C 71 18 121/73 95 Room Air PG Care Time/CCT Total # of Minutes Spent Total Time Spent with Patient: Total time spent is greater than 50% in coordination of care (as documented) at patient's floor/unit and/or counseling patient: Coding Level of Care Code None Diagnoses Acute cholecystitis K81.0
--- NOTE | 2022-10-01 13:27 | Discharge Summary ---
Date of Service October 01, 2022 Admission HPI Per Admitting Provider This is a 57yM with a PMH of HTN who presented to the [facility] ED on 09/29/22 with complaints of abdominal pain. Patient states his pain started yesterday evening around 6pm. Mostly located in the right upper abdomen. He thought it was related to indigestion and diarrhea, however pain did not improved. He tried heat packs without relief. When he woke up this AM he says it felt like he did 1000 sit ups. He attempted to go to work, however only lasted there an hour as he was doubled over due to pain. He called his and he ended up coming into the ER for evaluation. A CT a/p was obtained that showed distended gallbladder with wall thickening and pericholecystic fluid suggestive of acute cholecystitis. RUQ US showed mildly distended gallbladder with edematous, thickened gallbladder wall. No gallstones. No biliary ductal dilatation. Last ate pizza yesterday evening prior to pain starting. Patient denies any CP/SOB, nausea/vomiting, or fevers. + chills. He has never had pain like this before and no issues with greasy/fatty foods in the past. Past surgical history includes an appendectomy and umbilical hernia repair at [facility] years ago. Principal Diagnosis acute cholecystitis Discharge Exam awake, alert, no distress Respiratory normal respiratory effort Gastrointestinal (Abdomen) Inspection/Auscultation: + abdominal surgical incision (surgical dressings c/d/i) Percussion/Palpation: abdomen soft; abdomen nontender Discharge Data Allergies Allergy/AdvReac Type Severity Reaction Status Date / Time Penicillins Allergy Unknown Gastrointestinal Verified 09/29/22 11:53 Upset Consultations 09/29/22 11:42 Consult General Surgery Stat Procedures Performed Operation Date: 09/30/22 09:20 Actual Procedures p Laparoscopic Cholecystectomy(Not Applicable) - Riki West DO Ordered Studies 09/29/22 08:59 CT abd pelvis IV con only Stat 09/29/22 11:42 US gallbladder Stat Hospital Course (1) Acute cholecystitis: This is a 57y M who presented to the [facility] ED on 09/29/22 with complaints of RUQ abdominal pain. Workup with a CT a/p showed findings concerning for acute cholecystitis. The patient was admitted under the surgical services and kept NPO with IVF and started on pre-op abx. On 09/30 the patient went to the OR with Dr. Wets for a laparoscopic cholecystectomy. The patient tolerated the procedure well, see op note for full details. He recovered in the PACU and was transferred to the surgical nursing floor in stable condition. His diet was advanced as tolerated. Pain controlled on prn medications. Incisions c/d/i. He was able to void and ambulate without issues. On POD#1 the patient was deemed stable for discharge to home. Dispo instructions reviewed and he was instructed to follow up in the clinic within 2 weeks. Total Time Total Time Spent Total Time Spent (In Minutes): 15 Discharge Plan Discharge Items Patient Disposition: Home - Self-Care Reason For Visit: ACUTE CHOLECYSTITIS Discharge Diagnosis: laparoscopic cholecystectomy Condition on Discharge: Fair Activity: Per Instructions section Lifting: No more than 10 pounds Bathing Comment: may shower starting 10/01/22; no soaking in tubs/pools Exercise/Sports: Wait until after follow-up appointment Driving/Machine Use: no driving while taking narcotics for pain Non-emergency contact: Surgeon Call non-emergency contact if: you have any medication questions, your symptoms worsen, your pain is not controlled, your pain is concerning for you, you have a fever, your temperature is above 101.5, your wound has increased redness, your wound has increased drainage and your wound pain has increased Follow-up/Referrals: Riki West DO [Physician] - (Please call to schedule follow up in clinic within 2 weeks) Colin Liu [Primary Care Provider] - Diet: Regular Addtl Attending Provider Instructions: You may remove your outer surgical dressings on 10/02/22. You will have small white bandages on underneath called steri strips. You may shower with these on. They will tend to fall off on their own within 7-10 days. You may purchase Tylenol and/or Ibuprofen over the counter if needed for pain over the next few days. Take per manufacturers instructions Pending Studies at Discharge: Yes Studies:: surgical pathology Stand-Alone Forms: [employer], Smoking Cessation Medications and DC Order Prescriptions: New oxycodone 5 mg tablet 5 - 10 mg PO .r2d-o1g PRN (Reason: pain, for initial therapy, max 6 tabs per day) Qty: 15 0RF Continued bismuth subsalicylate [Pepto-Bismol] 262 mg/15 mL Suspension 0 mg PO DIRECTED PRN (Reason: .Gi-upset) losartan-hydrochlorothiazide 50-12.5 mg tablet 1 tab PO DAILY Vanita Green Gummies 1 tab PO DAILY Discharge Orders: Discharge Order (Routine); Ordered 10/01/22 Ordered By: Tiffanie Valente Admission Data Admit Date/Time: 09/29/22 13:04 Attending Provider: Riki West Admit Provider: Riki West Primary Care Provider: Colin Liu Other Providers: Riki West Other Interventions: Discharge Summary Assessment (RN) Last Done: 10/01/22 11:33 Coding Level of Care Code HOSP INP/OBS DISCH 30 MIN/LESS Diagnoses Acute cholecystitis K81.0
== END 2022-10-01 11:39 | disposition home or self-care (01) ==
LOC: ED 08:39 → EDINP 13:04 → INTOOBSV 13:04 → 3W 15:46
DX: Z79.899 Other long term (current) drug therapy; Z88.0 Allergy status to penicillin; K80.12 Calculus of gallbladder with acute and chronic cholecystitis without obstruction; Z20.822 Contact with and (suspected) exposure to COVID-19